=== PATIENT | female | born 1985 | race Caucasian/White ===

== ENCOUNTER 2022-04-09 05:23 | Emergency (ER) | payer BC, SELFPAY ==
[2022-04-09 05:31] VITALS: BP 135/87; PULSE 73; RESP 14; TEMP 37; O2SAT 99
[2022-04-09 05:59] LABS: Abs Immature Grans 0.01 10^3/uL (0.0-0.06); Absolute Basophil Count 0.07 10^3/uL (0.0-0.2); Absolute Eosinophil Count 0.05 10^3/uL (0.0-0.7); Absolute Lymphocyte Count 1.45 10^3/uL (1.2-3.4); Absolute Monocyte Count 0.37 10^3/uL (0.1-0.8); Absolute Neutrophil Count 4.05 10^3/uL (1.2-6.7); Basophils % 1.2; Eosinophils % 0.8; HCT 38.9 % (36.0-46.0); Immature Grans % 0.2; Lymphocytes % 24.2; MCH 30.4 pg (27.0-33.0); MCHC 33.4 % (32.0-36.0); MCV 91 fL (80-95); Monocytes % 6.2; Neutrophils % 67.4; Platelet Count 226 10^3/uL (130-400); RBC 4.28 10^6/uL (3.93-5.22); RDW 11.7 % (11.7-14.6); RDW-SD 39.1 fL
[2022-04-09 06:00] LABS: Bilirubin Negative (Negative); Blood Negative (Negative); Clarity Sl Cloudy (Clear); Glucose Negative (Negative); Ketones Negative (Negative); Leukocyte Esterase Negative (Negative); Nitrite Negative (Negative); Specific Gravity >= 1.030 (1.005-1.025); Urobilinogen 0.2 EU/dL (Up TO 0.2)
--- NOTE | 2022-04-09 06:00 | DI.CT_ITS ---
Exam(s) CT ABDOMEN PELVIS WO EXAM: CT ABDOMEN PELVIS WO CLINICAL HISTORY: RUQ pain to back, concern for biliary pathology. TECHNIQUE: Imaging Protocol: Axial computed tomography images with coronal and sagittal reformatted images were created and reviewed. COMPARISON: No exams were available for comparison FINDINGS: ABDOMEN: Lung Bases: Normal where visualized. Liver: Normal density. No measurable mass. Gallbladder and biliary tract: No radiodense calculus or biliary ductal dilation. Pancreas: Normal density, no abnormal calcifications or inflammatory process. Spleen: Normal. Kidneys: Normal size, contour and axis.There is a calcifications seen in the lower pole of the right kidney. It is associated with or adjacent to a 1 cm cystic structure. No masses seen. Adrenal glands: No mass is seen. Lymph nodes: Within normal limits. Abdominal Aorta: Abdominal portion non-dilated. Minimal atherosclerosis. PELVIS: Bladder:Symmetric distention, no gross wall thickening. Bowel: No obstruction or bowel wall thickening. Appendix is unremarkable. Peritoneal cavity: No ascites, collection or mesenteric inflammatory response. No free air. Reproductive organs: There is a 4.3 x 4.7 cm partially calcified mass seen in the left adnexa. It ma y be associated with the uterus. However, a ovarian mass cannot be excluded. Bones: Within normal limits. Soft Tissues: Within normal limits. IMPRESSION: 1. Calcifications seen in the lower pole of the right kidney. It is adjacent to or within a 1 cm cys tic structure. This may represent a cyst or calyx with associated calcification. Right nephrolithia sis should be considered. There is no hydronephrosis. 2. 4.3 x 4.7 cm partially calcified mass in the left adnexa. It may be associated with the uterus an d represent a fibroid. But an ovarian or other adnexal mass cannot be excluded. Pelvic ultrasound s hould be considered for further evaluation. RADIATION DOSE DELIVERED: 574.59mGy.cm Total DLP DATA REPOSITORY: All CT scans at this facility are submitted to the National Radiology Data Registry (NRDR) Dose Index Registry (DIR) with the [employer] ([employer]). RADIATION OPTIMIZATION: All CT scans at this facility use at least one of these dose optimization te chniques: automated exposure control; mA and/or kV adjustment per patient size (includes targeted exa ms where dose is matched to clinical indication); or iterative reconstruction.
--- NOTE | 2022-04-09 06:05 | ED.GENADUL_ITS ---
Discharge Plan Disposition Patient Disposition: STILL A PATIENT Condition: Improving Discharge Details Clinical Impression: Constipation, Abdominal pain ED Provider: True Boss Home Meds and New Rx's Prescriptions: No Action No Known Home Meds Discharge Instructions Instructions: Constipation (ED), Abdominal Pain (ED) Additional Instructions: Please take medications as prescribed. Please follow-up with your primary care physician. Please return to the emergency department for any worsening symptoms such as nausea vomiting abdominal pain fevers or other abnormal symptomatology. Medical Decision Making 37-year-old female history of traumatic splenic injury status post splenectomy, presents with right upper quadrant abdominal pain radiating to back over the past several hours associate with nausea no vomiting, normal bowel movements, no urinary symptoms. Afebrile nontoxic, subjective right upper quadrant pain on examination, no guarding or rebounding, negative Diaz sign, appears well- hydrated and comfortable. Consider biliary colic versus early cholecystitis versus less likely pancreatitis versus gastritis versus enteritis or colitis versus less likely UTI or pyelonephritis versus unlikely kidney stone. Screening labs fluids antiemetic analgesia, imaging to assess for biliary pathology. Disposition pending results. 06: 18 bedside ultrasound showing full gallbladder with wall thickness approximately 3 mm no pericholecystic fluid or stones appreciated. Awaiting results of CT abdomen pelvis. Close reassessment after meds and fluids. 07: 03 patient feeling much better after fluids and medication. Awaiting official CT read however upon my read I see a large stool burden and gas burden as well as a calcified fibroid of the uterus. I do not appreciate any biliary stones or pericholecystic fluid. Pending official read, patient will likely be discharged home with bowel regimen and strict return precautions. HPI General Date/Time Provider Initiated Documentation: 04/09/22 06:03 . HPI Narrative: 37-year-old female history of traumatic splenic injury status post splenectomy presents with right upper quadrant abdominal pain rating to her back for the past several hours associate with nausea no vomiting. Normal bowel movements. No urinary symptomatology. Related Data Home Medications Medication Instructions Recorded Confirmed Unknown [No Known Home Meds] 04/09/22 04/09/22 Allergies Allergy/AdvReac Type Severity Reaction Status Date / Time Sulfa (Sulfonamide Allergy Unverified 04/09/22 05:33 Antibiotics) General Stated Complaint: Abd Prob BEV: 3 Review of Systems Narrative: Review of Systems Constitutional: negative Eyes: negative ENT: negative Cardiovascular: negative Respiratory: negative Gastrointestinal: Right upper abdominal pain, nausea : negative Musculoskeletal: negative Skin: negative Neurologic: negative Psych: negative PFSH All Active Problems (Updated 04/09/22 @ 07:05 by True Boss MD) Constipation (Acute) Abdominal pain (Acute) Social History Smoking/Tobacco Use Status: Never Smoking risk assessment performed?: Yes Alcohol Intake: never Substance use type: does not use Do you feel safe at home: Yes Do you feel safe in your relationship?: Yes Exam Narrative Exam Narrative: Physical Examination General: alert, awake, cooperative, resting comfortably, no acute distress HEENT: normocephalic, atraumatic; PERRL, EOM intact, conjunctiva normal; no nasal discharge; moist mucous membranes, oral and pharyngeal mucosa normal, tolerating secretions Neck: supple, trachea midline; full ROM Chest: normal to inspection Respiratory: normal respiratory effort, speaking in full sentences, clear to auscultation, no wheezing, rales or rhonchi Cardiac: regular rate, regular rhythm, S1S2 intact, no murmurs rubs or gallops GI: abdomen soft, subjective tenderness right upper quadrant, non-distended, no guarding or rebounding, no palpable mass or hepatosplenomegaly Skin: no lesions, rashes or trauma appreciated Neuro: AAOx3, normal speech, moving all extremities Psych: Appropriate mood and affect Course Vital Signs Vital signs: Vital Signs Temperature 37.0 C 04/09/22 05:31 Pulse 73 04/09/22 05:31 Respiratory Rate 14 04/09/22 05:31 Blood Pressure 135/87 04/09/22 05:31 Pulse Oximetry 99 04/09/22 05:31 Temperature 37.0 C 04/09/22 05:31 Temperature Source Temporal Artery Scan 04/09/22 05:31 Pulse 73 04/09/22 05:31 Respiratory Rate 14 04/09/22 05:31 Respiratory Effort Non-Labored 04/09/22 05:34 Blood Pressure 135/87 04/09/22 05:31 Blood Pressure Position Sitting 04/09/22 05:31 Pulse Oximetry 99 04/09/22 05:31 Oxygen Delivery Method Room Air 04/09/22 05:31 Oxygen Flow Rate 0 04/09/22 05:31 Pain Level 8 04/09/22 05:31 Lab/Test Results Lab/Test Results: Laboratory Tests Range/Units 04/09/22 05:45 WBC (4.4-10.8) 10^3/uL 6.00 RBC (3.93-5.22) 10^6/uL 4.28 Hgb (11.2-15.7) g/dL 13.0 Hct (36.0-46.0) % 38.9 MCV (80-95) fL 91 MCH (27.0-33.0) pg 30.4 MCHC (32.0-36.0) % 33.4 RDW (11.7-14.6) % 11.7 Plt Count (130-400) 10^3/uL 226 MPV (8.0-11.0) fL 11.0 Immature Gran % 0.2 Neutrophils % 67.4 Lymphocytes % 24.2 Monocytes % 6.2 Eosinophils % 0.8 Basophils % 1.2 Nucleated RBC % (0.0-0.3) % 0.0 Absolute Neutrophils (1.2-6.7) 10^3/uL 4.05 Absolute Lymphocytes (1.2-3.4) 10^3/uL 1.45 Absolute Monocytes (0.1-0.8) 10^3/uL 0.37 Absolute Eosinophils (0.0-0.7) 10^3/uL 0.05 Absolute Basophils (0.0-0.2) 10^3/uL 0.07 POC- Test(urine) Negative
[2022-04-09 06:18] LABS: ALT 23 U/L (14-59); AST 18 U/L (15-37); Albumin 4.3 g/dL (3.4-5.0); Alkaline Phosphatase 45 U/L (46-116); Anion Gap 8.2 mmol/L (3-11); BUN 12 mg/dL (7-18); Bilirubin, Total 1.2 mg/dL (0.2-1.0); CO2 27.8 mmol/L (21.0-32.0); CREATININE 0.9 mg/dL (0.55-1.02); Calcium 8.9 mg/dL (8.5-10.1); Chloride 101 mmol/L (98-107); Glucose 98 mg/dL (74-106); Potassium 3.8 mmol/L (3.5-5.1); Sodium 137 mmol/L (136-145); Total Protein 7.1 g/dL (6.4-8.2)
[2022-04-09] MEDS: Normal Saline 1,000 ML 1000 ML IV (06:19)
[2022-04-09] MEDS: Ondansetron 4 MG/2 ML VIAL IVP (06:19)
[2022-04-09] MEDS: Ketorolac 15 MG/ML VIAL IVP (06:19)
[2022-04-09 06:22] LABS: Lipase 106 U/L (73-393)
--- NOTE | 2022-04-09 07:54 | DI.VRAD_ITS ---
PROCEDURE INFORMATION: Exam: CT Abdomen And Pelvis Without Contrast Exam date and time: 04/09/2022 6:14 AM Age: 37 years old Clinical indication: Abdominal pain; Localized; Right upper quadrant (ruq); Prior surgery; Surgery date: 6+ months; Surgery type: Partial splenectomy in 1998; Patient HX: Ruq pain to back, concern for biliary pathology TECHNIQUE: Imaging protocol: Computed tomography of the abdomen and pelvis without contrast. Radiation optimization: All CT scans at this facility use at least one of these dose optimization techniques: automated exposure control; mA and/or kV adjustment per patient size (includes targeted exams where dose is matched to clinical indication); or iterative reconstruction. COMPARISON: No relevant prior studies available. FINDINGS: Liver: No mass. Gallbladder and bile ducts: No calcified stones. No ductal dilation. Pancreas: No ductal dilation. Spleen: No splenomegaly. Adrenal glands: No mass. Kidneys and ureters: Cystic structure versus dilated calyx in the mid to lower pole of the right kidney with a calcification/calculus measuring 1 cm No hydronephrosis. Stomach and bowel: Unremarkable. No obstruction. No mucosal thickening. Appendix: No evidence of appendicitis. Intraperitoneal space: No free air. No significant fluid collection. Vasculature: No abdominal aortic aneurysm. Lymph nodes: No enlarged lymph nodes. Urinary bladder: Unremarkable as visualized. Reproductive: Partially calcified left parametrial/adnexal mass measuring 4.7 cm. Right ovarian cystic structure measuring approximately 2.8 cm. Bones/joints: Unremarkable. No acute fracture. Soft tissues: Unremarkable. IMPRESSION: Cystic structure versus focally dilated calyx in the lower pole of the right kidney and associated 1 cm calculus versus calcification. No hydroureteronephrosis Large left-sided uterine fibroid versus partially calcified left adnexal lesion/mass. Right ovarian cyst as described. Consider pelvic ultrasound for further characterization Dictated and Authenticated by: Trever Kovacs MD. Ordering:PHOEBE Biswas MD
[2022-04-09 08:09] VITALS: BP 112/70; PULSE 57; TEMP 36.9; O2SAT 100
[2022-04-09 08:26] VITALS: PULSE 67; RESP 14; TEMP 36.9; O2SAT 99
== END 2022-04-09 08:19 | disposition home or self-care (01) ==
PROVIDERS: Emergency Provider Emergency Medicine; PCP Family Medicine
DX: K59.00 Constipation, unspecified (principal); N28.89 Other specified disorders of kidney and ureter; R10.11 Right upper quadrant pain
CPT/HCPCS: 80053; 81025; 83690; 96361; 96374; 96375; 99284; 74176; 81003; 85025; J1885; J2405

== ENCOUNTER 2023-10-23 11:21 | Emergency (ER) | payer BC, SELFPAY ==
--- NOTE | 2023-10-23 11:30 | RT.EKG_ITS ---
APPROVED REPORT Exam: Resting ECG Reason for Exam: Palpatations Patient Location: E HR:65 bpm ECG Measurements Heart Rate 65 AXIS ID 129 P 83 QRSd 81 QRS 86 QT 411 T 49 QTc 428 Conclusion Sinus rhythm...normal P axis, V-rate 60- 99
[2023-10-23 11:32] VITALS: BP 128/93; PULSE 84; RESP 18; TEMP 36.6
[2023-10-23 11:51] VITALS: BP 148/93; PULSE 66; PULSE 68; RESP 14; O2SAT 100
[2023-10-23 12:26] LABS: Abs Immature Grans 0.01 10^3/uL (0.0-0.06); Absolute Basophil Count 0.06 10^3/uL (0.0-0.2); Absolute Eosinophil Count 0.11 10^3/uL (0.0-0.7); Absolute Lymphocyte Count 1.97 10^3/uL (1.2-3.4); Absolute Neutrophil Count 3.11 10^3/uL (1.2-6.7); Basophils % 1.1; Eosinophils % 1.9; HCT 42.1 % (36.0-46.0); HGB 14.1 g/dL (11.2-15.7); Immature Grans % 0.2; Lymphocytes % 34.8; MCH 30.9 pg (27.0-33.0); MCHC 33.5 % (32.0-36.0); MCV 92 fL (80-95); MPV 10.9 fL (8.0-11.0); Monocytes % 7.1; Neutrophils % 54.9; Platelet Count 289 10^3/uL (130-400); RBC 4.57 10^6/uL (3.93-5.22); RDW 11.5 % (11.7-14.6); RDW-SD 39.1 fL; WBC 5.66 10^3/uL (4.4-10.8)
[2023-10-23 12:54] LABS: ALT 28 U/L (14-59); AST 24 U/L (15-37); Albumin 4.8 g/dL (3.4-5.0); Alkaline Phosphatase 43 U/L (46-116); Anion Gap 9.7 mmol/L (3-11); BUN 12 mg/dL (7-18); Bilirubin, Total 1.2 mg/dL (0.2-1.0); CO2 27.3 mmol/L (21.0-32.0); CREATININE 0.9 mg/dL (0.55-1.02); Calcium 9.5 mg/dL (8.5-10.1); Chloride 102 mmol/L (98-107); Glucose 99 mg/dL (74-106); Magnesium 2.1 mg/dL (1.8-2.4); Potassium 3.5 mmol/L (3.5-5.1); Sodium 139 mmol/L (136-145); TSH (W/Ref FT4) 2.91 uIU/mL (0.36-3.74); Troponin I < 50 ng/L (<or=60)
[2023-10-23 12:56] LABS: D-Dimer 338 ng/mlFEU (<500)
--- NOTE | 2023-10-23 13:36 | W.ED.GENAD ---
HPI General Mode of arrival: ambulatory. Date/Time Provider Initiated Documentation: 10/23/23 12:03. Limitations to Documentation: no limitations. Information obtained by: patient. HPI Narrative: 38-year-old female here with palpitations over the past 1 week. Palpitations are moderate. She notes associated dyspnea on exertion at times. No chest pain. No leg swelling or calf pain. Related Data Allergies Allergy/AdvReac Type Severity Reaction Status Date / Time Sulfa (Sulfonamide Allergy Unverified 10/23/23 11:49 Antibiotics) General Stated Complaint: Palpitatns BEV: 3 Review of Systems All systems reviewed & are unremarkable except as noted in HPI and below Constitutional Constitutional: Denies fever(s) Cardiovascular Cardiovascular: Reports as per HPI Exam Const General: cooperative and no acute distress HENMT Mouth: moist mucous membranes Eyes Conjunctivae: normal conjunctivae Sclera: normal sclerae Resp Auscultation: clear to auscultation bilaterally, no rales, no rhonchi and no wheezes Cardio Rate: regular rate and not tachycardic Rhythm: regular rhythm Heart Sounds: S1 normal, S2 normal and no murmurs GI Palpation: soft, not firm, no guarding, no masses, not rigid and nontender Skin General skin exam: no rashes or lesions noted Neuro General: patient alert, patient awake and tone normal Extrem General: no calf tenderness and no edema Psych Appearance: grossly normal Mental Status: mental status grossly normal Course Vital Signs Vital signs: Vital Signs Temperature 36.6 C 10/23/23 11:32 Pulse 84 10/23/23 11:32 Respiratory Rate 18 10/23/23 11:32 Blood Pressure 128/93 H 10/23/23 11:32 Temperature 36.6 C 10/23/23 11:32 Temperature Source Oral 10/23/23 11:32 Pulse 68 10/23/23 11:51 Pulse 66 10/23/23 11:51 Respiratory Rate 14 10/23/23 11:51 Respiratory Effort Normal, Non-Labored 10/23/23 11:52 Blood Pressure 148/93 H 10/23/23 11:51 Pulse Oximetry 100 10/23/23 11:51 Oxygen Delivery Method Room Air 10/23/23 11:32 Oxygen Flow Rate 0 10/23/23 11:32 Pain Level 0 10/23/23 11:32 Lab/Test Results Lab/Test Results: Laboratory Tests Range/Units 01/03/24 11:46 WBC (4.4-10.8) 10^3/uL 5.66 RBC (3.93-5.22) 10^6/uL 4.57 Hgb (11.2-15.7) g/dL 14.1 Hct (36.0-46.0) % 42.1 MCV (80-95) fL 92 MCH (27.0-33.0) pg 30.9 MCHC (32.0-36.0) % 33.5 RDW (11.7-14.6) % 11.5 L Plt Count (130-400) 10^3/uL 289 MPV (8.0-11.0) fL 10.9 Immature Gran % 0.2 Neutrophils % 54.9 Lymphocytes % 34.8 Monocytes % 7.1 Eosinophils % 1.9 Basophils % 1.1 Nucleated RBC % (0.0-0.3) % 0.0 Absolute Neutrophils (1.2-6.7) 10^3/uL 3.11 Absolute Lymphocytes (1.2-3.4) 10^3/uL 1.97 Absolute Monocytes (0.1-0.8) 10^3/uL 0.40 Absolute Eosinophils (0.0-0.7) 10^3/uL 0.11 Absolute Basophils (0.0-0.2) 10^3/uL 0.06 D-Dimer (<500) ng/mlFEU 338 Sodium (136-145) mmol/L 139 Potassium (3.5-5.1) mmol/L 3.5 Chloride (98-107) mmol/L 102 Carbon Dioxide (21.0-32.0) mmol/L 27.3 Anion Gap (3-11) mmol/L 9.7 BUN (7-18) mg/dL 12 Creatinine (0.55-1.02) mg/dL 0.9 Est GFR (CKD-EPI 2020) (mL/min/1.73m2) 83.40 Glucose (74-106) mg/dL 99 Calcium (8.5-10.1) mg/dL 9.5 Magnesium (1.8-2.4) mg/dL 2.1 Total Bilirubin (0.2-1.0) mg/dL 1.2 H AST (15-37) U/L 24 ALT (14-59) U/L 28 Alkaline Phosphatase (46-116) U/L 43 L Troponin I (<or=60) ng/L < 50 Total Protein (6.4-8.2) g/dL 8.0 Albumin (3.4-5.0) g/dL 4.8 TSH (0.36-3.74) uIU/mL 2.91 Medical Decision Making 38-year-old female here with palpitations over the past 1 week and dyspnea on exertion at times. Patient saturating well in no respiratory distress. Patient hemodynamically stable. EKG was reviewed and interpreted by me to assess for arrhythmia: Please see report, sinus rhythm 65 bpm, no signs of Brugada or WPW. No ischemic findings. Patient is low risk for pulmonary embolism. D-dimer checked and negative. Troponin negative. Considered thyroid dysfunction and electrode abnormality. Labs reviewed and nondiagnostic. Patient observed on conveyor monitor for greater than 2 hours and no ectopy. 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 Lab Data Lab results reviewed: Yes I reviewed the patient's lab results. Labs: Laboratory Tests Range/Units 10/23/23 11:46 WBC (4.4-10.8) 10^3/uL 5.66 RBC (3.93-5.22) 10^6/uL 4.57 Hgb (11.2-15.7) g/dL 14.1 Hct (36.0-46.0) % 42.1 MCV (80-95) fL 92 MCH (27.0-33.0) pg 30.9 MCHC (32.0-36.0) % 33.5 RDW (11.7-14.6) % 11.5 L Plt Count (130-400) 10^3/uL 289 MPV (8.0-11.0) fL 10.9 Immature Gran % 0.2 Neutrophils % 54.9 Lymphocytes % 34.8 Monocytes % 7.1 Eosinophils % 1.9 Basophils % 1.1 Nucleated RBC % (0.0-0.3) % 0.0 Absolute Neutrophils (1.2-6.7) 10^3/uL 3.11 Absolute Lymphocytes (1.2-3.4) 10^3/uL 1.97 Absolute Monocytes (0.1-0.8) 10^3/uL 0.40 Absolute Eosinophils (0.0-0.7) 10^3/uL 0.11 Absolute Basophils (0.0-0.2) 10^3/uL 0.06 D-Dimer (<500) ng/mlFEU 338 Sodium (136-145) mmol/L 139 Potassium (3.5-5.1) mmol/L 3.5 Chloride (98-107) mmol/L 102 Carbon Dioxide (21.0-32.0) mmol/L 27.3 Anion Gap (3-11) mmol/L 9.7 BUN (7-18) mg/dL 12 Creatinine (0.55-1.02) mg/dL 0.9 Est GFR (CKD-EPI 2020) (mL/min/1.73m2) 83.40 Glucose (74-106) mg/dL 99 Calcium (8.5-10.1) mg/dL 9.5 Magnesium (1.8-2.4) mg/dL 2.1 Total Bilirubin (0.2-1.0) mg/dL 1.2 H AST (15-37) U/L 24 ALT (14-59) U/L 28 Alkaline Phosphatase (46-116) U/L 43 L Troponin I (<or=60) ng/L < 50 Total Protein (6.4-8.2) g/dL 8.0 Albumin (3.4-5.0) g/dL 4.8 TSH (0.36-3.74) uIU/mL 2.91 Quality:SDOH Health Related Social Needs: No Data to Display PFSH All Active Problems (Updated 10/23/23 @ 13:41 by Stefan Ahuja MD) Dizziness (Acute) Palpitations (Acute) Social History Smoking/Tobacco Use Status: Never Smoking risk assessment performed?: Yes Alcohol Intake: never Substance use type: does not use Do you feel safe at home: Yes Do you feel safe in your relationship?: Yes Discharge Plan Disposition Patient Disposition: Home Condition: Stable Discharge Details Clinical Impression: Palpitations, Dizziness Primary Care Provider: Judy Askew ED Provider: Stefan Ahuja Discharge Instructions Instructions: Heart Palpitations (ED), Dizziness (ED) Additional Instructions: Please contact your primary care physician to arrange follow-up. Call today. Return to the ER immediately for any worsening or new concerning symptoms. Referrals: Barbara Castillo [ [facility] STAFF PHYSICIAN] - Discharge Data Discharge Date/Time-TO BE ENTERED AT DEPARTURE: 10/23/23 13:57
== END 2023-10-23 13:57 | disposition home or self-care (01) ==
PROVIDERS: Emergency Provider Student in an Organized Health Care Education/Training Program; PCP Family Medicine
DX: R42 Dizziness and giddiness (principal); R00.2 Palpitations
CPT/HCPCS: 80053; 93005; 99283; 83735; 84443; 84484; 85025; 85379; 93010